=== PATIENT | female | born 1985 | race Native Hawaiian/Other Pacific Islander ===

== ENCOUNTER 2017-09-17 11:00 | Inpatient (IN) | payer OTHER ==
--- NOTE | 2017-09-17 11:44 | OBADHP ---
Datetime: 09/17/2017 11:39 Admit Comment, IP Provider: @ 38 wks c/o VB and ctxevery 5 min increasing intensity adn freu qency 8/10 dneies lof, +FM ANte uncoplicated OB: FT x 1 uncomplicated [employer]: denies PMH: Hypothyroid PSH: denies MEDS: thryonome SHX: denies NKDA A/P @! 38 wks GA in active labor -admit to LD -npo ivf -admissin labs -cont toco adn efm -anagesia prn Pelvic Type - PN: Adequate Extremities - PN: Normal Abdomen - PN: Normal Back - PN: Normal Breast - PN: Normal Lungs - PN: Normal Heart - PN: Normal Thyroid - PN: Normal Neurologic - PN: Normal HEENT - PN: Normal General - PN: Normal Presentation-Admit: Vertex FHR - Baseline A Provider: 150 Membranes, Provider: Intact Contraction Comments Provider: q 2-3 Gestation - Est Wks by US: 38.0 IP Hx Assessment: The History has been Reviewed and is Current IP Chief Complaint: Uterine contractions; Vaginal bleeding NICHD Variability Prov Fetus A: Moderate 6-25bpm NICHD Accel Fetus A IP Provider: [id number] NICHD Decel Fetus A IP Provider: None Dilatation, Provider: 4 Effacement, Provider: 50 Station, Provider: -2 Genitourinary Exam: Normal DTRs - PN: Normal IP Adm Impression: Term, intrauterine IP Admit Plan: Admit to unit
[2017-09-17 12:33] LABS: RBC URINE < 1 /hpf (0-3); URINE BACTERIA RARE (<OCC); URINE BILIRUBIN NEGATIVE (NEGATIVE); URINE BLOOD NEGATIVE (NEGATIVE); URINE COLOR Yellow (YELLOW); URINE GLUCOSE (UA) NORMAL (Normal); URINE KETONE NEGATIVE (NEGATIVE); URINE LEUKOCYTE ESTERASE NEG Leu/uL (Negative); URINE PROTEIN NEGATIVE (NEGATIVE); URINE UROBILINOGEN NORMAL mg/dL (0.2-1.0); WBC URINE 1 /hpf (0-5)
[2017-09-17 12:37] LABS: BASO % 0.4 % (0.0-2.0); EOS # 0.1 K/uL (0.0-0.7); EOS % 0.8 % (0.0-4.0); HEMATOCRIT 37.3 % (34.0-47.0); LYMPH # 2.4 K/uL (1.0-4.3); LYMPH % 17.3 % (20.0-40.0); MEAN CELL VOLUME 88.3 fL (81.0-99.0); MEAN CORPUSCULAR HEMOGLOBIN 29.6 pg (27.0-31.0); MEAN CORPUSCULAR HGB CONC 33.5 g/dL (33.0-37.0); MEAN PLATELET VOLUME 7.9 fL (7.2-11.7); MONO # 1.1 K/uL (0.0-0.8); MONO % 7.6 % (0.0-10.0); NRBC % 0.1 % (0.0-2.0); RED CELL DISTRIBUTION WIDTH 14.4 % (11.5-14.5)
[2017-09-17 13:12] LABS: ALB/GLOB RATIO 0.8 (1.0-2.1); ALKALINE PHOSPHATASE 115 U/L (38-126); ALT/SGPT 28 U/L (9-52); AST/SGOT 25 U/L (14-36); BILIRUBIN,TOTAL 0.3 mg/dL (0.2-1.3); BLOOD UREA NITROGEN 7 mg/dL (7-17); CALCIUM 9.1 mg/dl (8.6-10.4); CARBON DIOXIDE 21 mmol/L (22-30); CHLORIDE 102 mmol/L (98-107); GLUCOSE,RANDOM 72 mg/dL (65-105); POTASSIUM 3.8 mmol/L (3.6-5.2); SODIUM 134 mmol/L (132-148); TOTAL PROTEIN 8.1 g/dL (6.3-8.3)
--- NOTE | 2017-09-17 13:56 | OBPN ---
Datetime: 09/17/2017 13:51 IP Progress Impression: Normal progression of labor; Reassuring heart rate IP Procedures: Artificial ROM; Sterile Vag Exam Gestation - Est Wks by US: 37.3 Weight - Estimated: 3200 Presentation-Admit: Vertex IP Progress Note Comment: asked by dr schwarz to arom S-patient reports that she is feeling some ctx o-vss afebrile fht cat1 [place] ctx irregular sve /-2 A/P Patient in labor at 38 wga.arom done .clear fluid -continue managemnt as per dr schwarz Vital Signs Provider: Reviewed; Within Normal Limits FHR Category Provider Fetus A: Category I Dilatation, Provider: 4 Effacement, Provider: 70 Station, Provider: -2 Datetime: 09/17/2017 11:39 Membranes, Provider: Intact Contraction Comments Provider: q 2-3 FHR - Baseline A Provider: 150 NICHD Accel Fetus A IP Provider: 15X15 NICHD Variability Prov Fetus A: Moderate 6-25bpm NICHD Decel Fetus A IP Provider: None
[2017-09-17] MEDS ORDERED: Lactated Ringer's 1,000 ML IV SCH (14:45)
[2017-09-17] MEDS ORDERED: Oxytocin 30 UNIT 30 UNITS/500 ML BAG IV ONE (15:52)
[2017-09-17] MEDS ORDERED: Bupivacaine HCl 0.25% PF (10 ml) Inj ONE (15:55)
[2017-09-17] MEDS ORDERED: Oxytocin 30 UNIT 30 UNITS/500 ML BAG IV SCH (16:00)
[2017-09-17 17:13] LABS: GFR AFRICAN-AMERICAN > 60
[2017-09-17] MEDS ORDERED: Sodium Citrate/Citric Acid 15 ml Sol PO ONE (18:06)
[2017-09-17] MEDS ORDERED: Sodium Citrate/Citric Acid 15 ml Sol ONE (18:06)
[2017-09-17] MEDS ORDERED: cefOXitin IV 2 gm in Dextrose 2 GM/50 ML BAG IVPB ONE ×2 (18:06→18:07)
[2017-09-17] MEDS ORDERED: Sodium Bicarbonate (8.4%) 50 mEq Vial ONE (18:11)
[2017-09-17] MEDS ORDERED: ePHEDrine 50 mg/ml Inj ONE (18:18)
[2017-09-17] MEDS ORDERED: Phenylephrine 10 mg/ml Inj ONE (18:18)
[2017-09-17] MEDS ORDERED: Benzocaine/Menthol 20%-0.5% Topical Spray (60 ml) TOP PRN (18:39)
[2017-09-17] MEDS ORDERED: Oxycodone/Acetaminophen 5/325 mg Tab PO PRN ×2 (18:39)
--- NOTE | 2017-09-17 18:39 | OBPN ---
Datetime: 09/17/2017 18:36 IP Progress Impression: Normal progression of labor; Non-reassuring heart rate IP Progress Note Comment: pt with recurren tdeep variable decelrations oxygen given, let lateral ivh rapid progression for Vital Signs Provider: Reviewed Dilatation, Provider: 7 Effacement, Provider: 90 Station, Provider: -2
--- NOTE | 2017-09-17 18:44 | OBDS ---
DELIVERY PERSONNEL Delivery Doctor: Cesia Bernstein MD 2Nd Grade Teacher: Lilliana Garcia RN Anesthesiologist: laith MATERNAL INFORMATION Delivery Anesthesia: Epidural Medications in Delivery: pitocin 20 Estimated Blood Loss (ml): 250 Placenta Cultured: No Maternal Complications: None Provider Comments: pt was fuly dilated and pushign, atramatic spontalus delivey of head with right m ediolateral epistomy, no nuchal cord nnoted .atrumatic, spontaenous deliveyr of anterior followed by posterio shoulder followed yb dlievey rof body . both oral an dnasal passages of baby wereu bulb suct ioned. ubmilcal cord clampe dand cut. baby handed to mother on abdomen with rn assistance.cord blood collected x 2. spontneou sdleivey of itnact placenta with membranes. fundus firm. right mediolatera l episotomy repaired with 2-0 and 3-0 chromic. good hemosaiss. nichol 250ml, apgars 9, 9 weight of 6lb s 7 ounces. no complciaoitns LABOR SUMMARY EDC: 10/05/2017 00:00 LABOR INFORMATION Cervical Ripening Agents: Cytotec @ (Annotations: 50mcg given PO as per MD's order. ) Group B Beta Strep: Negative MEMBRANES Membranes Rupture Method: Artificial Rupture of Membranes: 09/17/2017 13:47 Length of Rupture (hrs): 4.53 Amniotic Fluid Color: Clear Amniotic Fluid Amount: Moderate Amniotic Fluid Odor: Normal STAGES OF LABOR Stage 3 hrs: 0 Stage 3 min: 12 VAGINAL DELIVERY Episiotomy: Right Mediolateral Laceration Extension: N/A Laceration Type: None Initial Vag Sponge Count: 10 Final Vag Sponge Count: 10 Initial Vag Sharps Count: 1 Final Vag Sharps Count: 1 Sponge Count Correct: Yes Sharps Count Correct: Yes BABY A INFORMATION Infant Delivery Date/Time: 09/17/2017 18:19 Method of Delivery: Vaginal Born in Route : No : N/A Forceps: N/A Vacuum Extraction: N/A Shoulder Dystocia : No SHOULDER DYSTOCIA BABY A Infant Delivery Date/Time: 09/17/2017 18:19 PRESENTATION/POSITION BABY A Presentation: Compound Cephalic Presentation: Vertex Breech Presentation: N/A PLACENTA INFORMATION BABY A Placenta Delivery Time : 09/17/2017 18:31 Placenta Method of Delivery: Spontaneous Placenta Status: Delivered SCORES BABY A Heart Rate 1 min: >100 bpm Resp Effort 1 min: Good Cry Reflex Irritability 1 min: Cough or Sneeze or Pulls Away Muscle Tone 1 min: Active Motion Color 1 min: Body [place], Extremities Blue Resuscitation Effort 1 min: Tactile Stimulation SCORE 1 MIN: 9 Heart Rate 5 min: >100 bpm Resp Effort 5 min: Good Cry Reflex Irritability 5 min: Cough or Sneeze or Pulls Away Muscle Tone 5 min: Active Motion Color 5 min: Body [place], Extremities Blue SCORE 5 MIN: 9 INFANT INFORMATION BABY A Gestational Age at Delivery: 37.3 Gestational Status: Term Outcome : Liveborn Condition : Stable Sex: Male IDENTIFICATION/MEDS BABY A ID Band Number: [id number] ID Band Location: Left Leg; Left Arm Sensor Applied: Yes Sensor Number: [id number] Sensor Location : Cord Clamp WEIGHT/LENGTH BABY A Infant Birthweight (gms): 2915 Infant Weight (lb): 6 Infant Weight (oz): 7 Length Inches: 19.50 Length cms: 49.5 CORD INFORMATION BABY A No. Cord Vessels: 3 Nuchal Cord : short cord Cord Blood Taken: Yes Infant Suction: Mouth; Nose ASSESSMENT BABY A Infant Complications: None Physical Findings at Delivery: Within Normal Limits Infant Respirations: Appears Normal Technical Stenographer/ALS Called : No Infant Care By: [place] Transferred To: Remains with Mother
[2017-09-18] MEDS: Levothyroxine 50 MCG TAB PO SCH (06:27)
[2017-09-18 08:08] LABS: BASO % 0.1 % (0.0-2.0); EOS # 0.1 K/uL (0.0-0.7); EOS % 0.5 % (0.0-4.0); HEMATOCRIT 34.9 % (34.0-47.0); LYMPH # 2.9 K/uL (1.0-4.3); LYMPH % 15.2 % (20.0-40.0); MEAN CELL VOLUME 88.5 fL (81.0-99.0); MEAN CORPUSCULAR HEMOGLOBIN 29.8 pg (27.0-31.0); MEAN CORPUSCULAR HGB CONC 33.6 g/dL (33.0-37.0); MEAN PLATELET VOLUME 8.1 fL (7.2-11.7); MONO # 1.5 K/uL (0.0-0.8); MONO % 7.7 % (0.0-10.0); NRBC % 0.1 % (0.0-2.0); RED CELL DISTRIBUTION WIDTH 14.3 % (11.5-14.5); WHITE BLOOD COUNT 18.9 K/uL (4.8-10.8)
[2017-09-19] MEDS: Levothyroxine 50 MCG TAB PO SCH (07:15)
[2017-09-19 07:40] LABS: BASO % 0.3 % (0.0-2.0); EOS # 0.4 K/uL (0.0-0.7); EOS % 3.1 % (0.0-4.0); HEMATOCRIT 35.1 % (34.0-47.0); LYMPH # 3.5 K/uL (1.0-4.3); LYMPH % 24.5 % (20.0-40.0); MEAN CELL VOLUME 88.1 fL (81.0-99.0); MEAN CORPUSCULAR HEMOGLOBIN 29.8 pg (27.0-31.0); MEAN CORPUSCULAR HGB CONC 33.9 g/dL (33.0-37.0); MEAN PLATELET VOLUME 7.9 fL (7.2-11.7); MONO # 1.3 K/uL (0.0-0.8); MONO % 8.7 % (0.0-10.0); NRBC % 0.1 % (0.0-2.0); RED CELL DISTRIBUTION WIDTH 14.7 % (11.5-14.5); WHITE BLOOD COUNT 14.5 K/uL (4.8-10.8)
[2017-09-19 08:08] VITALS: BP 119/75; RESP 18; TEMP 97.1; O2SAT 97
[2017-09-19 16:38] VITALS: PULSE 80
--- NOTE | 2017-09-19 19:39 | OBDCSUM ---
Datetime: 09/19/2017 08:36 Discharged to, Provider: Home Follow up at, Provider: dr schwarz Disch Instr Activity: Normal activity Disch Instr Diet: Regular Discharge Diet restrict Prov: none Discharge Instructions, Provider: Routine instructions given Discharge Diagnosis, Provider: Term Delivered Discharge Time: 09/19/2017 11:00 Follow up in weeks, Provider: 6 weeks Disch Referrals: None Contraception discussed, Prov: Yes Disch Activity Restrictions: No exercising; No sexual activity; Nothing in vagina - Gilman, danielle sanchez Discharge Comment, Provider: f/u 6 weeks Contraception after Delivery: Not Planning to Use
--- NOTE | 2017-09-19 19:39 | OBPPN ---
Datetime: 09/19/2017 08:55 PP Pain Prov: Within normal limits PP Nausea Prov: Denies PP Flatus Prov: Yes PP BM Prov: No PP Impression Prov: Normal progression PP Plan Prov: Continue present management; Discharge PP Progress Note Prov: Patient seen and examined at bedside. Per nursing no acute events overnight. Patient is doing well, having back pain and lower abdominal pain but controlled with medication. [place] is moderate and decreasing. Ambulating and tolerating diet. Urinating without difficulty. Passing flatus, no BM. Breast feeding. Denies headaches, dizziness, cp, palpitations, sob, urinary symptoms. VS: 119/75 80 97.1 Gen: AAOx3 CV: RRR Lungs: CTA B/L Abd: Soft, fundus firm below umbilicus Ext: No clubbing, cyanosis, edema; no calf tenderness Labs: 14.0>12.5/37.3<415 18.9>11.7/34.9<347 14.5>11.9/35.1<349 B positive Rubella immune A/P: 31 year old s/p with RML episiotomy PPD#2 -Stable, afebrile -Pain control with motrin and tylenol prn -Hx of hypothryoidism - continue levothyroxine 50mcg daily -Encourage ambulation and hydration -Encourage -Anticipate d/c home today - pelvic rest x 6 weeks, f/u with Dr Bernstein within 6 weeks for postpartu m visit -Plan d/w attending Sigrid Parkinson DO PGY-1 agree with above pt seen adn examned stable for dc Vital Signs Provider PP: Reviewed; Within Normal Limits
== END 2017-09-19 12:20 | disposition home or self-care (01) | DRG 775 ==
LOC: C.EROB 11:00 → C.4D 11:42 → C.4M 20:15
PROVIDERS: ADMIT Obstetrics & Gynecology; ATTEND Obstetrics & Gynecology
PROC: 10E0XZZ Delivery of Products of Conception, External Approach (ICD-10-PCS; principal; 2017-09-17)
PROC: 0W8NXZZ Division of Female Perineum, External Approach (ICD-10-PCS; 2017-09-17)
PROC: 10907ZC Drainage of Amniotic Fluid, Therapeutic from Products of Conception, Via Natural or Artificial Opening (ICD-10-PCS; 2017-09-17)
DX: O99.284 Endocrine, nutritional and metabolic diseases complicating childbirth (principal); E03.9 Hypothyroidism, unspecified; O76 Abnormality in fetal heart rate and rhythm complicating labor and delivery; O32.6XX0 Maternal care for compound presentation, not applicable or unspecified; O69.3XX0 Labor and delivery complicated by short cord, not applicable or unspecified; Z3A.37 37 weeks gestation of pregnancy; Z37.0 Single live birth